=== PATIENT | female | born 1995 | race Caucasian/White ===

== ENCOUNTER 2020-01-22 10:37 | Emergency (ER) | payer OTHER, SELFPAY ==
[2020-01-22 11:14] VITALS: BP 118/67; PULSE 74; RESP 18; TEMP 36.8; O2SAT 98; BMI 29.1
--- NOTE | 2020-01-22 11:34 | HMH.EDUTC ---
[facility] [place] Disposition Clinical Impression: Left otitis media Qualifiers: Otitis media type: suppurative Chronicity: acute Recurrence: non-recurrent Spontaneous tympanic membrane rupture: without spontaneous rupture Qualified Code(s): H66.002 - Acute suppurative otitis media without spontaneous rupture of ear drum, left ear Disposition: Home, Self-Care Condition on Discharge: Good Instructions: Middle Ear Infection Additional Instructions: Drink plenty of fluids. Take tylenol or ibuprofen for pain or fever. Take the medications as directed. Follow up with your regular doctor. GO TO THE ER FOR ANY WORSENING SYMPTOMS Prescriptions: Amoxicillin/Potassium Clav [Augmentin 875-125 Tablet] 1 tab PO Q12H 10 Days #20 tab Transmission Status: Received by [facility] Neomycin/Polymyxin B Sulf/Hc [Zgwkpxxj-Ewhtvenej-WA Otic Susp 10mL] 3 drops EAR-LEFT TID 7 Days #1 bottle Transmission Status: Received by [facility] Referrals: PCP,No [Primary Care Provider] - Time of Disposition: 11:38 Medical Decision Making - Medical Records Medical records reviewed: No: I reviewed the patient's medical records. - Vasquez Inquiry Pt receiving controlled substance: No Vital Signs: 01/22/20 11:14 01/22/20 11:47 Temperature 98.2 F 98.2 F Temperature Source Oral Oral Pulse Rate 74 Pulse Rate [Radial] 74 Respiratory Rate 18 18 Blood Pressure 118/67 Blood Pressure [Right Arm] 118/67 Blood Pressure Mean [Right Arm] 84 Blood Pressure Source Automatic Cuff Blood Pressure Source [Right Arm] Automatic Cuff Blood Pressure Position Sitting Blood Pressure Position [Right Arm] Sitting 02 Sat by Pulse Oximetry 98 Oxygen Delivery Method Room Air Room Air [facility] [place] HPI - General Stated complaint: ear pain left ear swollen Time Seen by Provider: 01/22/20 11:36 Mode of Arrival: Ambulatory Source of Information: Patient Limitations: No Limitations Description of Symptoms (Recalled from Triage Doc. by RN): LEFT EAR PAIN AND SWELLING HEENT Symptoms (Recalled from RN notes): Yes Resp Symptoms (Recalled from RN notes): No Skin Symptoms (Recalled from RN notes): No MS Symptoms (Recalled from RN notes): No Functional Status (Recalled from RN notes): WNL - History of Present Illness Provider Complaint: She c/o left ear pain for the past 2 days. She has a history of getting ear infections easily. - Related Data Previous Rx's Medication Instructions Recorded Penicillin V Potassium 500 mg PO BID 10 Days #20 tab 03/12/19 Amoxicillin/Potassium Clav 1 tab PO Q12H 10 Days #20 tab 01/22/20 [Augmentin 875-125 Tablet] Neomycin/Polymyxin B Sulf/Hc 3 drops EAR-LEFT TID 7 Days #1 01/22/20 [Lcxiqfqp-Ehlvtdqde-XL Otic Susp bottle 10mL] Allergies Allergy/AdvReac Type Severity Reaction Status Date / Time diphenhydramine Allergy Unknown Verified 08/28/18 13:52 [From BENADRYL] - Worker's Comp Is this a Worker's Comp case?: No [facility] History - Hepatitis A Screen Drug use history?: No High risk sexual behaviors?: No History of sexually transmitted infection?: No Currently employed?: No Childcare worker?: No Do you have indoor plumbing?: Yes Do you have electricity?: Yes Attestation statement:: This patient has been screened for Hepatitis A risk factors. I have reviewed the patient's past medical history: Yes Medical History: Denies:: Cancer, Diabetes Mellitus Type 1, Diabetes Mellitus Type 2, Hypertension, MRSA Laterality Cases: Bilateral: Tonsillectomy Other Surgeries: Yes: Appendectomy Amputation: No Fractures: No - Social History Smoking Status: Current every day smoker Tobacco Type: cigarettes Alcohol Intake: never Occupational Status: employed Housing: house Family Hx:: No significant family history ROS Obtained: Yes All systems reviewed & no additional complaints - Constitutional Constitutional: Denies chills, Denies fever(s), Reports poor appetite, Reports malaise - Ey
[2020-01-22 11:47] VITALS: BP 118/67; PULSE 74; RESP 18; TEMP 36.8; O2SAT 98
== END 2020-01-22 11:48 | disposition home or self-care (01) ==
PROVIDERS: Emergency Provider Nurse Practitioner Family
DX: H66.002 Acute suppurative otitis media without spontaneous rupture of ear drum, left ear (principal); F17.210 Nicotine dependence, cigarettes, uncomplicated
CPT/HCPCS: 99201

== ENCOUNTER 2020-02-03 08:40 | Emergency (ER) | payer OTHER, SELFPAY ==
[2020-02-03 08:46] VITALS: BP 123/75; PULSE 87; RESP 17; TEMP 37.1; O2SAT 98; BMI 28.0
--- NOTE | 2020-02-03 08:49 | XR_ITS ---
PROCEDURE: XR CHEST 2V CLINICAL HISTORY: COUGH COMPARISON: CR CXR CHEST(2 VIEWS-NOT PORTABLE) from 12/13/2014 FINDINGS: The cardiomediastinal silhouette and pulmonary vascularity are within normal limits. On the lateral view there are increased markings in the region of the right middle lobe. The remaining lungs are clear. No acute bony abnormalities. IMPRESSION: Right middle lobe infiltrate. Dictated by: Isidro Phoenix MD 02/03/2020 15:22 Isidro Phoenix MD in [place] 02/03/2020 15:22
[2020-02-03 09:00] LABS: Adenovirus,PCR Not Detected (NotDetected); Bordetella Pertussis Not Detected (NotDetected); Chlamydophila Pneumoniae, PCR Not Detected (NotDetected); Coronavirus 19, PCR Not Detected (NotDetected); Coronavirus 229E Not Detected (NotDetected); Coronavirus NL63 Not Detected (NotDetected); Coronavirus OC43 Not Detected (NotDetected); Coronovirus HKU1,PCR Not Detected (NotDetected); Human Metapneumovirus Not Detected (NotDetected); Influenza A, PCR Not Detected (NotDetected); Influenza AH1, 2009 Not Detected (NotDetected); Influenza AH1, PCR Not Detected (NotDetected); Influenza AH3,PCR Not Detected (NotDetected); Influenza B, PCR Not Detected (NotDetected); Mycoplasma Pneumoniae, PCR Not Detected (NotDetected); Parainfluenza 1, PCR Not Detected (NotDetected); Parainfluenza 2, PCR Not Detected (NotDetected); Parainfluenza 3, PCR Not Detected (NotDetected); Parainfluenza 4, PCR Not Detected (NotDetected); Respiratory Syncytial Virus Not Detected (NotDetected)
--- NOTE | 2020-02-03 09:16 | HMH.EDGENADL ---
ED Disposition Clinical Impression: Viral upper respiratory infection Disposition: Home, Self-Care Condition on Discharge: Good Instructions: DI for Viral Upper Respiratory Infection -- Adult Additional Instructions: Tessalon as needed for cough. Tylenol or ibuprofen as needed for pain. Call back to the emergency department in 3 hrs to obtain your COVID-19 test result. Quarantine yourself until you obtain your result. Additional instructions for UPPER RESPIRATORY INFECTION: See your physician if not improving in 3-4 days or if worsening. Rest and drink plenty of fluids. Return immediately if you have an uncontrollable fever greater than 104 degrees, difficulty breathing or shortness of breath, persistent vomiting, or inability to swallow. Prescriptions: Benzonatate [Tessalon Perle 100mg Cap] 100 mg PO TIDP PRN #20 cap PRN Reason: Cough Transmission Status: Received by [facility] Referrals: PCP,No [Primary Care Provider] - - Critical Care Critical Care Time: No Attestation: On 02/03/20, the high probability of a clinically significant, sudden or life threatening deterioration of the following system(s) required my full and direct attention, intervention and personal management. The time I documented below is in addition to time spent performing reported procedures but includes the following listed in this critical care notation. Medical Decision Making - Vasquez Inquiry Pt receiving controlled substance: No Vital Signs: 02/03/20 08:46 Temperature 98.8 F Temperature Source Oral Pulse Rate [Right Radial] 87 Respiratory Rate 17 Blood Pressure [Right Arm] 123/75 Blood Pressure Mean [Right Arm] 91 02 Sat by Pulse Oximetry 98 Oxygen Delivery Method Room Air - Lab Data Lab Results 02/03/20 08:41: Group A Strep Rapid Negative Orders (Tests/Meds): ORDERS Category Date Time Status XR chest 2V Stat Exams 02/03/20 08:49 Taken Full Resp Panel w/COVID ([facility]) Routine Lab 02/03/20 08:41 Received Strep Screen Confirmation Stat Micro 02/03/20 08:41 Received - Radiology Data #1 Image(s): Chest Image Reviewed: Yes I reviewed the patient's radiology image Preliminary Findings: Normal/NAD General Adult HPI - General Chief complaint: Upper Respiratory Infection Stated complaint: cough, sore throat Time Seen by Provider: 02/03/20 09:18 Mode of Arrival: Ambulatory Limitations: No Limitations Description of Symptoms (Recalled from ER Triage Doc. by RN): PT PRESENTS TO ED WITH C/O SORE THROAT AND COUGH X 2 DAYS. NO FEVER. - History of Present Illness HPI narrative: 3-day history of cough and sore throat. Denies rhinorrhea, fever, earache, vomiting or diarrhea. No sputum production. No known exposures to illnesses including COVID-19. - Related Data Previous Rx's Medication Instructions Recorded Penicillin V Potassium 500 mg PO BID 10 Days #20 tab 03/12/19 Amoxicillin/Potassium Clav 1 tab PO Q12H 10 Days #20 tab 01/22/20 [Augmentin 875-125 Tablet] Neomycin/Polymyxin B Sulf/Hc 3 drops EAR-LEFT TID 7 Days #1 01/22/20 [Edeqcabn-Izvrxyhhg-RG Otic Susp bottle 10mL] Benzonatate [Tessalon Perle 100mg 100 mg PO TIDP PRN #20 cap 02/03/20 Cap] Allergies Allergy/AdvReac Type Severity Reaction Status Date / Time diphenhydramine Allergy Unknown Verified 02/03/20 08:49 [From TUNDE] [facility] History - Hepatitis A Screen Drug use history?: No High risk sexual behaviors?: No History of sexually transmitted infection?: No Currently employed?: No Childcare worker?: No Do you have indoor plumbing?: Yes Do you have electricity?: Yes Attestation statement:: This patient has been screened for Hepatitis A risk factors. I have reviewed the patient's past medical history: Yes Medical History: Denies:: Cancer, Diabetes Mellitus Type 1, Diabetes Mellitus Type 2, Hypertension, MRSA Laterality Cases: Bilateral: Tonsillectomy Other Surgeries: Yes: Appendectom
[2020-02-03 09:19] LABS: Strep Scrn Group A (Rapid) Negative (Negative)
[2020-02-03 09:41] VITALS: BP 118/70; PULSE 85; RESP 15; TEMP 37.1; O2SAT 99
[2020-02-03 12:26] LABS: Rhinovirus/Enterovirus Detected (NotDetected)
== END 2020-02-03 09:42 | disposition home or self-care (01) ==
PROVIDERS: Emergency Provider Emergency Medicine
DX: Z20.828 Contact with and (suspected) exposure to other viral communicable diseases (principal); J06.9 Acute upper respiratory infection, unspecified
CPT/HCPCS: 71046; 87430; 87581; 87633; 87798; 99283; U0003

== ENCOUNTER 2020-08-25 13:32 | Emergency (ER) | payer OTHER, SELFPAY ==
[2020-08-25 13:35] VITALS: BP 130/84; PULSE 89; RESP 20; TEMP 37; O2SAT 98; BMI 28.3
--- NOTE | 2020-08-25 14:37 | HMH.EDUTC ---
[facility] [place] Disposition Clinical Impression: Nausea vomiting and diarrhea Disposition: Home, Self-Care Condition on Discharge: Good Instructions: Nausea and Vomiting-Adult, Diarrhea, Ondansetron, Dicyclomine Additional Instructions: Drink extra fluids with and between meals. If you have difficulty drinking, try very small amounts of water or suck on ice chips. ? Avoid fruit juices, as these do not replace minerals and can actually increase diarrhea. ? Children and adults can use sports drinks to replenish electrolytes. Younger children and infants should use products formulated for children, like oral rehydration solutions. ? Eat food in small amounts and let your stomach recover. ? Get lots of rest. You may feel tired or weak. ? No greasy or fried foods for the next 24-48 hours BRAT diet Bananas Rice Apples and [place] ? Make sure to drink plenty of liquids ? Return if needed ? Straight to ER if any life threatening symptoms ? Zofran as prescribed ? You was given an outpatient order for diarrhea panel, please collect specimen and bring back to outpatient lab then call back to the [facility] or follow up with family doctor for results ? Follow up with family doctor in the next 48-72 hours if no improvement or any worsening of symptoms Prescriptions: Dicyclomine HCl [Bentyl 10mg capsule] 10 mg PO TID PRN #15 cap PRN Reason: Cramping Transmission Status: Pending to [facility] Ondansetron [Zofran 4mg ODT] 4 mg PO TIDP PRN #10 tab PRN Reason: Nausea And Vomiting Transmission Status: Pending to [facility] Referrals: Provider,Referral, MD [Primary Care Provider] - As needed Time of Disposition: 14:40 Medical Decision Making - Vasquez Inquiry Pt receiving controlled substance: No Vasquez was queried for this patient: No Vital Signs: 08/25/20 13:35 Temperature 98.6 F Temperature Source Oral Pulse Rate [Right Brachial] 89 Respiratory Rate 20 Blood Pressure [Right Arm] 130/84 Blood Pressure Mean [Right Arm] 99 Blood Pressure Source [Right Arm] Automatic Cuff Blood Pressure Position [Right Arm] Sitting 02 Sat by Pulse Oximetry 98 Oxygen Delivery Method Room Air Medical Decision Narrative: No vomiting since arrival patient report has nexplonon in left arm denies chance of [facility] HPI - General Stated complaint: vomiting/nausea/diarrhea Time Seen by Provider: 08/25/20 14:37 Mode of Arrival: Ambulatory Source of Information: Patient Limitations: No Limitations Description of Symptoms (Recalled from Triage Doc. by RN): PATIENT C/O VOMITING AND DIARRHEA SINCE 0500 THIS MORNING HEENT Symptoms (Recalled from RN notes): No Resp Symptoms (Recalled from RN notes): No Skin Symptoms (Recalled from RN notes): No MS Symptoms (Recalled from RN notes): No Functional Status (Recalled from RN notes): WNL - History of Present Illness Provider Complaint: Patient state that she was recently around someone with the stomache bug States that she woke up around 5am this morning having vomiting and diarrhea State that she has continued to have it throughout the day and wanted to come in and get something so she didnt get dehydrated - Related Data Previous Rx's Medication Instructions Recorded Dicyclomine HCl [Bentyl 10mg 10 mg PO TID PRN #15 cap 08/25/20 capsule] Ondansetron [Zofran 4mg ODT] 4 mg PO TIDP PRN #10 tab 08/25/20 Allergies Allergy/AdvReac Type Severity Reaction Status Date / Time diphenhydramine Allergy Unknown Verified 02/03/20 08:49 [From BENADRYL] - Worker's Comp Is this a Worker's Comp case?: No [facility] History - Hepatitis A Screen Drug use history?: No High risk sexual behaviors?: No History of sexually transmitted infection?: No Currently employed?: No Childcare worker?: No Do you have indoor plumbing?: Yes Do you have electricity?: Yes Attestation statement:: This patient has been screened for Hepatitis A risk factors. I have reviewed the patient's pa
[2020-08-25 14:47] VITALS: BP 130/84; PULSE 89; RESP 20; TEMP 37; O2SAT 98
== END 2020-08-25 14:51 | disposition home or self-care (01) ==
PROVIDERS: Emergency Provider Nurse Practitioner
DX: R11.2 Nausea with vomiting, unspecified (principal); R19.7 Diarrhea, unspecified; F17.210 Nicotine dependence, cigarettes, uncomplicated
CPT/HCPCS: 99202; G0463

== ENCOUNTER 2020-11-19 12:52 | Emergency (ER) | payer OTHER, SELFPAY ==
[2020-11-19 14:00] VITALS: BP 128/78; PULSE 76; RESP 19; TEMP 36.8; O2SAT 98; BMI 28.3
--- NOTE | 2020-11-19 14:36 | HMH.EDUTC ---
[facility] [place] Disposition Clinical Impression: Viral upper respiratory infection, Exposure to COVID-19 virus Disposition: Home, Self-Care Condition on Discharge: Good Instructions: DI for COVID-19 (Suspected or Confirmed ), Preventing the Spread of Coronavirus Discharge Instructions, Coronavirus Disease 2019 Additional Instructions: *Monitor Temp, Over the counter Motrin or Tylenol as directed/as needed Tylenol every 4 hours and Motrin every 6 hours (as long as your family doctor has told you that you can take it) for fever or pain. and straight to ER if unable to lower temp less than 101.0 after medication given *Warm salt water gargles may help to soothe the throat *Throat Lozenges *Warm fluids like tea with honey may help to soothe the throat *Sleep elevated *Humidifier/Vaporizer *Bromfed may cause drowsiness. Know how it effects you (your child) before driving, caring for small child, or sending your child to school. Not other antihistamines/allergy medications while taking bromfed Follow up IMMEDIATELY for new or worsening symptoms or no Noticeable improvement over the next 48-72 hours. 911 for difficulty breathing or swallowing You were tested for today for COVID19 your test result should be back in the next 24-48 hours, you may call to the [facility] to see if your test results are back in the next 48 hours [phone] [facility] hours are 9am-9pm You was given a handout with instructions for Self Quarantine and Self isolation for while you wait on test results and what to do if they are positive If you are positive the Health Dept will be contacting you also Make sure to take your Vitamins Vit. C Vit D and Zinc if you can take them Prescriptions: Promethazine/Dextromethorphan [Promethazine-Dm Syrup] 2.5 - 5 ml PO Q46H PRN #100 ml PRN Reason: Cough Transmission Status: Pending to [facility] Referrals: Tanya Henriquez PA [Primary Care Provider] - Forms: Work/School Release Time of Disposition: 14:41 Medical Decision Making - Vasquez Inquiry Pt receiving controlled substance: No Vasquez was queried for this patient: No Vital Signs: 11/19/20 14:00 Temperature 98.3 F Temperature Source Oral Pulse Rate [Left Brachial] 76 Respiratory Rate 19 Blood Pressure [Right Arm] 128/78 Blood Pressure Mean [Right Arm] 94 Blood Pressure Source [Right Arm] Automatic Cuff Blood Pressure Position [Right Arm] Sitting 02 Sat by Pulse Oximetry 98 Oxygen Delivery Method Room Air Orders (Tests/Meds): ORDERS Category Date Time Status Covid-19 Nasal PCR ([facility]) Routine Lab 11/19/20 14:28 Ordered [facility] HPI - General Stated complaint: covid exposure Time Seen by Provider: 11/19/20 14:36 Mode of Arrival: Ambulatory Source of Information: Patient Limitations: No Limitations Description of Symptoms (Recalled from Triage Doc. by RN): PATIENT C/O COUGH AND RUNNY NOSE X 2 DAYS. RECENTLY EXPOSED TO COVID HEENT Symptoms (Recalled from RN notes): Yes Resp Symptoms (Recalled from RN notes): No Skin Symptoms (Recalled from RN notes): No MS Symptoms (Recalled from RN notes): No Functional Status (Recalled from RN notes): WNL - History of Present Illness Provider Complaint: Patient states that she was recently around her neice that has since tested positive for COVID State that she has started having runny nose and cough and wanted to come in and get tested - Related Data Previous Rx's Medication Instructions Recorded Dicyclomine HCl [Bentyl 10mg 10 mg PO TID PRN #15 cap 08/25/20 capsule] Ondansetron [Zofran 4mg ODT] 4 mg PO TIDP PRN #10 tab 08/25/20 Promethazine/Dextromethorphan 2.5 - 5 ml PO Q46H PRN #100 ml 11/19/20 [Promethazine-Dm Syrup] Allergies Allergy/AdvReac Type Severity Reaction Status Date / Time diphenhydramine Allergy Unknown Verified 02/03/20 08:49 [From BENADRYL] - Worker's Comp Is this a Worker's Comp case?: No [facility] History - Hepatitis A Screen Drug use history?:
[2020-11-19 14:57] VITALS: BP 128/78; PULSE 76; RESP 19; TEMP 36.8; O2SAT 98
== END 2020-11-19 14:58 | disposition home or self-care (01) ==
PROVIDERS: Emergency Provider Nurse Practitioner; PCP Physician Assistant
DX: Z20.822 Contact with and (suspected) exposure to COVID-19 (principal); J06.9 Acute upper respiratory infection, unspecified; F17.210 Nicotine dependence, cigarettes, uncomplicated
CPT/HCPCS: 99202; G0463; U0003

== ENCOUNTER 2023-02-12 23:43 | Emergency (ER) | payer OTHER, SELFPAY ==
[2023-02-12 23:48] VITALS: BP 137/83; PULSE 90; RESP 16; TEMP 36.6; O2SAT 99; BMI 28.3
[2023-02-13] VITALS: BP 129/65; PULSE 115; O2SAT 97
--- NOTE | 2023-02-13 | XR_ITS ---
PROCEDURE INFORMATION: Exam: XR Chest Exam date and time: 02/13/2023 12:02 AM Age: 27 years old Clinical indication: Patient HX: Worsening productive cough; Additional info: Productive cough, SOA TECHNIQUE: Imaging protocol: Radiologic exam of the chest. Views: 2 views. COMPARISON: CR XR CHEST 2V 02/03/2020 8:54 AM FINDINGS: Lungs: Unremarkable. No consolidation. Pleural spaces: Unremarkable. No pleural effusion. No pneumothorax. Heart/Mediastinum: Unremarkable. No cardiomegaly. Bones/joints: Unremarkable. IMPRESSION: No acute findings.
--- NOTE | 2023-02-13 00:06 | HMH.EDGENADL ---
Discharge Plan Disposition Patient Disposition: Home, Self-Care Prescriptions Prescriptions: New benzonatate 200 mg capsule 200 mg PO TID PRN (Reason: cough) Qty: 14 0RF zsrqonlxdjrafm-qtdbncmyqhow-GK 4-10-30 mg/5 mL liquid 5 ml PO Q8 PRN (Reason: cough) Qty: 480 0RF No Action Nexplanon 68 mg implant 1 implant SUBDERMAL DIRECTED Referrals Follow up/Referrals: Washington Ibrahim MD [Primary Care Provider] - See instructions Activity Restrictions/Add. Instructions Additional Instructions/Restrictions: Please take off medications as prescribed as needed. If your symptoms continue to worsen or do not improve, consider returning to ED or urgent care or PCP for repeat evaluation. Clinical Impressions Clinical Impression: URI (upper respiratory infection), Cough Discharge ED Provider: Dwight Wright Adult HPI General Chief complaint: Upper Respiratory Infection Stated complaint: Sore throat,cough,head congestions Time Seen by Provider: 02/12/23 23:52 Mode of Arrival: Ambulatory Source of Information: Patient Limitations: No Limitations Description of Symptoms (Recalled from ER Triage Doc. by RN): Patient has had cough, congestion, sore throat for 3 days. History of Present Illness HPI narrative: 27-year-old female, no reported past medical history, on no medications, presents with 3 days of worsening cough, congestion, sneezing. She reports that her cough is productive of yellow sputum. She is beginning to have pain with coughing. She reports symptoms are worsening over the last 3 days. She denies any fevers at home. She denies any chest pain unrelated to coughing. She reports no sore throat besides with coughing. She reports that her nephew had similar symptoms about 5 days ago and she thinks she picked it up from him. Related Data Home Medications Medication Instructions Recorded Confirmed etonogestrel 68 mg subdermal 1 implant subdermal DIRECTED 08/23/21 02/13/23 implant (Nexplanon) Previous Rx's Medication Instructions Recorded benzonatate 200 mg capsule 200 mg PO TID PRN cough #14 caps 02/13/23 uefdfckotulcijs-nfhzdwrzxjama-TF 4 5 ml PO Q8 PRN cough #480 mL 02/13/23 mg-10 mg-30 mg/5 mL oral liquid Allergies Allergy/AdvReac Type Severity Reaction Status Date / Time diphenhydramine Allergy Intermediate Hives Verified 02/13/23 00:04 [From BENADRYL] [facility] Disclaimer: The information contained in this section may have been updated after the patient was seen, as this information can be updated by other users. Social History Smoking Status: Current every day smoker tobacco type: e-cigarettes alcohol intake: never current occupational status: other Travel in the last 8 weeks: None housing: house ROS Obtained: Yes All systems reviewed & no additional complaints except as documented Physical Exam General General appearance: alert and in no apparent distress Head Head exam: atraumatic and normocephalic Eye Eye exam: Present normal appearance, PERRL and EOMI ENT ENT exam: Present normal oropharynx and normal external ear exam Neck Neck exam: Present normal inspection and full ROM Chest Chest inspection: Present normal inspection and symmetric chest wall rise; Absent tenderness Respiratory Respiratory exam: Present other (Right lower lobe crackles, frequent cough noted); Absent respiratory distress Cardiovascular Cardiovascular exam: Present normal rhythm and tachycardia Abdominal Exam Abdominal exam: Present soft; Absent distention, tenderness or guarding Extremities Exam Extremities exam: Present normal inspection; Absent edema or joint swelling Back Exam Back exam: Present normal inspection; Absent tenderness Neurological Exam Neurological exam: Present alert and oriented X3; Absent motor sensory deficit Psychiatric Psychiatric exam: Present normal affect and normal mood Skin Skin exam: Present warm, dry and normal color Lympha
[2023-02-13 01:23] VITALS: BP 110/79; PULSE 89; RESP 18; TEMP 36.5; O2SAT 97
== END 2023-02-13 01:25 | disposition home or self-care (01) ==
PROVIDERS: Emergency Provider Emergency Medicine; PCP Emergency Medicine
DX: R05.9 Cough, unspecified (principal); J06.9 Acute upper respiratory infection, unspecified; F17.290 Nicotine dependence, other tobacco product, uncomplicated
CPT/HCPCS: 71046; 99283

== ENCOUNTER 2023-05-14 10:51 | Emergency (ER) | payer OTHER, SELFPAY ==
[2023-05-14 11:10] VITALS: BP 143/88; PULSE 76; RESP 18; TEMP 36.6; O2SAT 97; BMI 34.3
--- NOTE | 2023-05-14 11:16 | ED_ITS ---
Discharge Plan Disposition Patient Disposition: Home, Self-Care Condition: Good Prescriptions Prescriptions: New polymyxin B sulf-trimethoprim 10,000 unit- 1 mg/mL drops 1 drp Eye-Both Q3H 7 Days Qty: 10 0RF Rx Instructions: while awake; do not exceed 6 doses in 24 hours No Action Nexplanon 68 mg implant 1 implant SUBDERMAL DIRECTED Referrals Follow up/Referrals: Provider,Referral, MD [Primary Care Provider] - See instructions Activity Restrictions/Add. Instructions Additional Instructions/Restrictions: Use the eye drops as directed. Strict hand washing in the house hold, because conjunctivitis is very contagious. Follow up with your regular doctor. GO TO THE ER FOR ANY WORSENING SYMPTOMS OR CONCERNS Clinical Impressions Clinical Impression: Bilateral conjunctivitis Instructions Patient Instructions: How to Instill Eye Drops, DI for Conjunctivitis Discharge ED Provider: Dylan Cash [facility] HPI General Stated complaint: both eye pain Time Seen by Provider: 05/14/23 11:16 History of Present Illness Provider Complaint: She states that for the past 3 days she has had bilateral eye redness, irritation, and yellowish discharge. She denies any injury or foreign body. Related Data Home Medications Medication Instructions Recorded Confirmed etonogestrel 68 mg subdermal 1 implant subdermal DIRECTED 08/23/21 05/14/23 implant (Nexplanon) Previous Rx's Medication Instructions Recorded polymyxin B sulfate 10,000 1 drp Eye-Both Q3H 7 days #10 mL 05/14/23 unit-trimethoprim 1 mg/mL eye drops Allergies Allergy/AdvReac Type Severity Reaction Status Date / Time diphenhydramine Allergy Intermediate Hives Verified 05/14/23 11:23 [From BENADRYL] [facility] Disclaimer: The information contained in this section may have been updated after the patient was seen, as this information can be updated by other users. Social History Smoking Status: Current every day smoker tobacco type: e-cigarettes alcohol intake: never current occupational status: other Travel in the last 8 weeks: None housing: house ROS Obtained: Yes All systems reviewed & no additional complaints except as documented Constitutional Constitutional: Denies chills and Denies fever(s) Eyes Eyes: Reports as per HPI, Denies blurry vision and Reports eye discharge ENT Ears, Nose, Mouth, and Throat: Denies dizziness, Denies otalgia and Denies sore throat Cardiovascular Cardiovascular: Denies chest pain Respiratory Respiratory: Denies shortness of breath, Denies chest congestion, Denies cough, Denies stridor and Denies wheezing Gastrointestinal Gastrointestingal: Denies nausea or vomiting Musculoskeletal Musculoskeletal: Reports system reviewed and no additional complaints, except as documented and Denies arthralgias Integumentary/Breasts Skin/Breast: Denies rash Neurologic Neurologic: Denies dizziness and Denies paresthesias Allergic/Immunologic Allergic/Immunologic: Denies wheezing Physical Exam General General appearance: alert and in no apparent distress Head Head exam: atraumatic, normocephalic and normal inspection Eye Eye exam: Present PERRL, EOMI, conjunctival redness, conjunctival injection and discharge ENT ENT exam: Present normal exam, normal oropharynx, mucous membranes moist, TM's normal bilaterally and normal external ear exam Neck Neck exam: Present normal inspection, full ROM and trachea midline; Absent meningismus or lymphadenopathy Chest Chest inspection: Present normal inspection and symmetric chest wall rise; Absent tenderness Respiratory Respiratory exam: Present normal lung sounds bilaterally; Absent respiratory distress Cardiovascular Cardiovascular exam: Present regular rate and normal rhythm; Absent JVD Abdominal Exam Abdominal exam: Present soft and normal bowel sounds; Absent distention, tenderness or guarding Extremities Exam Extremities exam: Present normal inspection, full ROM and normal capillary refill; Absent calf tenderness Back Exam Back exam: Present normal inspection; Absent tenderness Neurological Exam Neurological exam: Present alert and oriented X3 Psychiatric Psychiatric exam: Present normal affect and normal mood Skin Skin exam: Present warm, dry, intact and normal color Lymphatic Lymphatic Findings: no adenopathy Medical Decision Making Medical Records Medical records reviewed: No I reviewed the patient's medical records. Vasquez Inquiry Pt receiving controlled substance: No
[2023-05-14 11:43] VITALS: BP 143/88; PULSE 76; RESP 18; TEMP 36.6; O2SAT 97
== END 2023-05-14 11:43 | disposition home or self-care (01) ==
PROVIDERS: Emergency Provider Nurse Practitioner Family
DX: H10.33 Unspecified acute conjunctivitis, bilateral (principal); F17.290 Nicotine dependence, other tobacco product, uncomplicated
CPT/HCPCS: 99212; 99214; G0463

== ENCOUNTER 2023-05-29 15:25 | Emergency (ER) | payer OTHER, SELFPAY ==
--- NOTE | 2023-05-29 15:55 | ED_ITS ---
Discharge Plan Disposition Patient Disposition: Home, Self-Care Condition: Good Prescriptions Prescriptions: New ibuprofen [ibuprofen] 600 mg tablet 600 mg PO Q6HP PRN (Reason: Mild Pain) Qty: 30 0RF No Action Nexplanon 68 mg implant 1 implant SUBDERMAL DIRECTED Referrals Follow up/Referrals: Provider,Referral, [Primary Care Provider] - See instructions Activity Restrictions/Add. Instructions Additional Instructions/Restrictions: Drink plenty of fluids. Take tylenol or ibuprofen for pain or fever. Follow up with your regular doctor. GO TO THE ER FOR ANY WORSENING SYMPTOMS Clinical Impressions Clinical Impression: Viral pharyngitis Instructions Patient Instructions: DI for Viral Pharyngitis Discharge ED Provider: Dylan Cash [facility] [place] HPI General Stated complaint: sore throat, cough Time Seen by Provider: 05/29/23 15:52 Related Data Home Medications Medication Instructions Recorded Confirmed etonogestrel 68 mg subdermal 1 implant subdermal DIRECTED 08/23/21 05/29/23 implant (Nexplanon) Previous Rx's Medication Instructions Recorded ibuprofen 600 mg tablet 600 mg PO Q6HP PRN Mild Pain #30 05/29/23 tabs Allergies Allergy/AdvReac Type Severity Reaction Status Date / Time diphenhydramine Allergy Intermediate Hives Verified 05/29/23 16:22 [From BENADRYL] [facility] Disclaimer: The information contained in this section may have been updated after the patient was seen, as this information can be updated by other users. Social History Smoking Status: Current every day smoker tobacco type: e-cigarettes alcohol intake: never current occupational status: other Travel in the last 8 weeks: None housing: house ROS Obtained: Yes All systems reviewed & no additional complaints except as documented Constitutional Constitutional: Reports chills and Reports fever(s) Eyes Eyes: Denies eye discharge ENT Ears, Nose, Mouth, and Throat: Reports as per HPI Cardiovascular Cardiovascular: Denies chest pain Respiratory Respiratory: Denies chest congestion and Reports cough Gastrointestinal Gastrointestingal: Reports nausea; Denies abdominal pain, constipation, cramping, diarrhea or vomiting Musculoskeletal Musculoskeletal: Denies arthralgias Integumentary/Breasts Skin/Breast: Denies rash Neurologic Neurologic: Denies paresthesias Physical Exam General General appearance: alert and in no apparent distress Head Head exam: atraumatic, normocephalic and normal inspection Eye Eye exam: Present normal appearance, PERRL and EOMI ENT ENT exam: Present normal exam, normal oropharynx, mucous membranes moist, TM's normal bilaterally and normal external ear exam Neck Neck exam: Present normal inspection, full ROM and trachea midline; Absent meningismus or lymphadenopathy Chest Chest inspection: Present normal inspection and symmetric chest wall rise; Absent tenderness Respiratory Respiratory exam: Present normal lung sounds bilaterally; Absent respiratory distress Cardiovascular Cardiovascular exam: Present regular rate and normal rhythm; Absent JVD Abdominal Exam Abdominal exam: Present soft and normal bowel sounds; Absent distention, tenderness or guarding Extremities Exam Extremities exam: Present normal inspection, full ROM and normal capillary refill; Absent calf tenderness Back Exam Back exam: Present normal inspection; Absent tenderness Neurological Exam Neurological exam: Present alert and oriented X3 Psychiatric Psychiatric exam: Present normal affect and normal mood Skin Skin exam: Present warm, dry, intact and normal color Lymphatic Lymphatic Findings: no adenopathy Medical Decision Making Medical Records Medical records reviewed: No I reviewed the patient's medical records. Vasquez Inquiry Pt receiving controlled substance: No Lab Data Lab results reviewed: Yes I reviewed the patient's lab results.
[2023-05-29 16:00] VITALS: BP 120/86; PULSE 77; RESP 12; TEMP 36.6; O2SAT 97; BMI 29.9
[2023-05-29 16:41] LABS: UTC Strep Screen (Rapid) Negative (Negative)
[2023-05-29 16:56] VITALS: BP 120/86; PULSE 77; RESP 12; TEMP 36.6; O2SAT 97
== END 2023-05-29 16:56 | disposition home or self-care (01) ==
PROVIDERS: Emergency Provider Nurse Practitioner Family
DX: J02.9 Acute pharyngitis, unspecified (principal); R05.9 Cough, unspecified; B34.9 Viral infection, unspecified; F17.290 Nicotine dependence, other tobacco product, uncomplicated
CPT/HCPCS: 87880; 99212; 99214; G0463

== ENCOUNTER 2023-09-08 18:00 | Emergency (ER) | payer OTHER, SELFPAY ==
[2023-09-08 18:20] VITALS: BP 141/73; PULSE 71; RESP 18; TEMP 36.8; O2SAT 97; BMI 29.1
--- NOTE | 2023-09-08 18:26 | EXP.UTC ---
Discharge Plan Disposition Patient Disposition: Home, Self-Care Condition: Good Prescriptions Prescriptions: New triamcinolone acetonide 0.1 % cream 1 applic topical BID PRN (Reason: itching) Qty: 30 0RF methylprednisolone 4 mg Tablets,Dose Pack 4 mg PO DIRECTED 6 Days Qty: 21 0RF Rx Instructions: Take 1 pack as directed for 6 days No Action Nexplanon 68 mg implant 1 implant SUBDERMAL DIRECTED Referrals Follow up/Referrals: Provider,Referral, MD [Primary Care Provider] - See instructions Activity Restrictions/Add. Instructions Additional Instructions/Restrictions: Don't start the oral steroids until tomorrow. Don't put the topical steroids (triamcinolone) on your face or your groin. Follow up with your regular doctor. GO TO THE ER FOR ANY WORSENING SYMPTOMS OR CONCERNS Clinical Impressions Clinical Impression: Bee sting Instructions Patient Instructions: Insect Bites and Stings, DI for Insect Bites and Stings Discharge ED Provider: Dylan Cash [facility] [place] General Stated complaint: bee sting RT foot Time Seen by Provider: 09/08/23 18:26 History of Present Illness Provider Complaint: She states that she was stung by a bee on the bottom of her right foot earlier today. Since then she has had pain, redness and swelling of the area of the sting. She denies any swelling of her mouth, lips or throat. She denies any history of allergy to bee stings. Related Data Home Medications Medication Instructions Recorded Confirmed etonogestrel 68 mg subdermal 1 implant subdermal DIRECTED 08/23/21 09/08/23 implant (Nexplanon) Previous Rx's Medication Instructions Recorded methylprednisolone 4 mg tablets in 4 mg PO DIRECTED 6 days #21 tabs 09/08/23 a dose pack triamcinolone acetonide 0.1 % 1 applic topical BID PRN itching 09/08/23 topical cream #30 grams Allergies Allergy/AdvReac Type Severity Reaction Status Date / Time diphenhydramine Allergy Intermediate Hives Verified 09/08/23 18:29 [From BENADCHRISTINA] [facility] Disclaimer: The information contained in this section may have been updated after the patient was seen, as this information can be updated by other users. Social History Smoking Status: Current every day smoker tobacco type: e-cigarettes alcohol intake: never current occupational status: other Travel in the last 8 weeks: None housing: house ROS Obtained: Yes All systems reviewed & no additional complaints except as documented Constitutional Constitutional: Denies chills and Denies fever(s) Eyes Eyes: Denies eye discharge ENT Ears, Nose, Mouth, and Throat: Denies dizziness, Denies otalgia and Denies sore throat Cardiovascular Cardiovascular: Denies chest pain Respiratory Respiratory: Denies shortness of breath, Denies chest congestion, Denies cough, Denies stridor and Denies wheezing Gastrointestinal Gastrointestingal: Denies nausea or vomiting Musculoskeletal Musculoskeletal: Reports system reviewed and no additional complaints, except as documented and Denies arthralgias Integumentary/Breasts Skin/Breast: Reports as per HPI and Reports redness Neurologic Neurologic: Denies dizziness and Denies paresthesias Allergic/Immunologic Allergic/Immunologic: Denies wheezing Physical Exam General General appearance: alert and in no apparent distress Head Head exam: atraumatic, normocephalic and normal inspection Eye Eye exam: Present normal appearance, PERRL and EOMI ENT ENT exam: Present normal exam, normal oropharynx, mucous membranes moist, TM's normal bilaterally and normal external ear exam Neck Neck exam: Present normal inspection, full ROM and trachea midline; Absent meningismus or lymphadenopathy Chest Chest inspection: Present normal inspection and symmetric chest wall rise; Absent tenderness Respiratory Respiratory exam: Present normal lung sounds bilaterally; Absent respiratory distress Cardiovascular Cardiovascular exam: Present regular rate and normal rhythm; Absent JVD Abdominal Exam Abdominal exam: Present soft and normal bowel sounds; Absent distention, tenderness or guarding Extremities Exam Extremities exam: Present normal inspection, full ROM and normal capillary refill; Absent calf tenderness Back Exam Back exam: Present normal inspection; Absent tenderness Neurological Exam Neurological exam: Present alert and oriented X3 Psychiatric Psychiatric exam: Present normal affect and normal mood Skin Skin exam: Present erythema (there is redness and mild edema of the bottom of her right foot. ) Lymphatic Lymphatic Findings: no adenopathy Medical Decision Making Medical Records Medical records reviewed: No I reviewed the patient's medical records. Vasquez Inquiry Pt receiving controlled substance: No
[2023-09-08] MEDS: DEXAMETHASONE 4MG/ML 1ML VIAL 8 MG IM (19:04)
[2023-09-08 19:18] VITALS: BP 141/73; PULSE 71; RESP 18; TEMP 36.8; O2SAT 97
== END 2023-09-08 19:18 | disposition home or self-care (01) ==
PROVIDERS: Emergency Provider Nurse Practitioner Family
DX: S90.861A Insect bite (nonvenomous), right foot, initial encounter (principal); W57.XXXA Bitten or stung by nonvenomous insect and other nonvenomous arthropods, initial encounter; M79.671 Pain in right foot
CPT/HCPCS: 96372; 99212; 99214; G0463

== ENCOUNTER 2023-09-15 22:29 | Emergency (ER) | payer OTHER, SELFPAY ==
[2023-09-15 22:59] VITALS: BP 137/83; PULSE 81; RESP 16; TEMP 36.8; O2SAT 99; BMI 29.9
--- NOTE | 2023-09-15 23:02 | HMH.EDGENADL ---
Discharge Plan Disposition Patient Disposition: Home, Self-Care Prescriptions Prescriptions: No Action Nexplanon 68 mg implant 1 implant SUBDERMAL DIRECTED triamcinolone acetonide 0.1 % cream 1 applic topical BID PRN (Reason: itching) Qty: 30 0RF methylprednisolone 4 mg Tablets,Dose Pack 4 mg PO DIRECTED 6 Days Qty: 21 0RF Rx Instructions: Take 1 pack as directed for 6 days Referrals Follow up/Referrals: Provider,Referral, MD [Primary Care Provider] - See instructions Activity Restrictions/Add. Instructions Additional Instructions/Restrictions: Please use eardrops, 4 drops 4 times per day for 7 days. Please follow-up with your primary care provider. Please return to the emergency department if you develop any new or worsening symptoms or become concerned for your health. Clinical Impressions Clinical Impression: Otitis externa Qualifiers: Otitis externa type: unspecified type Chronicity: unspecified Laterality: right Qualified Code(s): H60.91 - Unspecified otitis externa, right ear Discharge ED Provider: Dwight Wright General Adult HPI General Chief complaint: Ear Stated complaint: Right earache Time Seen by Provider: 09/15/23 22:55 History of Present Illness HPI narrative: 20-year-old female with reported history of swimmer's ear in the past presents with acute right ear pain after going swimming yesterday. She denies any recent fever or illness. Reports that her hearing sounds normal. Related Data Home Medications Medication Instructions Recorded Confirmed etonogestrel 68 mg subdermal 1 implant subdermal DIRECTED 08/23/21 09/08/23 implant (Nexplanon) Previous Rx's Medication Instructions Recorded methylprednisolone 4 mg tablets in 4 mg PO DIRECTED 6 days #21 tabs 09/08/23 a dose pack triamcinolone acetonide 0.1 % 1 applic topical BID PRN itching 09/08/23 topical cream #30 grams Allergies Allergy/AdvReac Type Severity Reaction Status Date / Time diphenhydramine Allergy Intermediate Hives Verified 09/15/23 23:04 [From BENCHIO] [facility] Disclaimer: The information contained in this section may have been updated after the patient was seen, as this information can be updated by other users. Social History Smoking Status: Current every day smoker tobacco type: e-cigarettes alcohol intake: never current occupational status: other Travel in the last 8 weeks: None housing: house ROS Obtained: Yes All systems reviewed & no additional complaints except as documented Physical Exam General General appearance: alert and in no apparent distress Head Head exam: atraumatic and normocephalic Eye Eye exam: Present normal appearance, PERRL and EOMI ENT ENT exam: Present normal oropharynx, TM's normal bilaterally, normal external ear exam and other (Right external auditory canal is erythematous with minimal exudate, no mastoid tenderness) Neck Neck exam: Present normal inspection and full ROM Chest Chest inspection: Present normal inspection and symmetric chest wall rise; Absent tenderness Respiratory Respiratory exam: Present normal lung sounds bilaterally; Absent respiratory distress Cardiovascular Cardiovascular exam: Present regular rate and normal rhythm Abdominal Exam Abdominal exam: Present soft; Absent distention, tenderness or guarding Extremities Exam Extremities exam: Present normal inspection; Absent edema or joint swelling Back Exam Back exam: Present normal inspection; Absent tenderness Neurological Exam Neurological exam: Present alert and oriented X3; Absent motor sensory deficit Psychiatric Psychiatric exam: Present normal affect and normal mood Skin Skin exam: Present warm, dry and normal color Lymphatic Lymphatic Findings: no adenopathy Medical Decision Making Medical Records Medical records reviewed: Yes I reviewed the patient's medical records. Vasquez Inquiry Pt receiving controlled substance: No Vasquez was queried for this patient: No Vital Signs: 09/15/23 22:59 09/15/23 23:13 09/15/23 23:15 Temperature 98.2 F 98.2 F 98 F Temperature Source Oral Oral Pulse Rate 81 77 Pulse Rate [Left] 81 Respiratory Rate 16 18 18 Blood Pressure 137/83 126/78 Blood Pressure [Right Arm] 137/83 Blood Pressure Mean [Right Arm] 101 Blood Pressure Source [Right Arm] Automatic Cuff Blood Pressure Position [Right Arm] Sitting 02 Sat by Pulse Oximetry 99 Oxygen Delivery Method Room Air Room Air Lab Data Lab results reviewed: Yes I reviewed the patient's lab results. Orders (Tests/Meds): ED MEDICATIONS Discontinued Medications Generic Name Dose Route Start Last Admin Trade Name Freq PRN Reason Stop Dose Admin Neomycin/Polymyxin/Hydrocortisone 10 ml 09/15/23 23:05 09/15/23 23:10 Coneocjk-Zxrcaftlz-Mr Otic Susp 10ml OT 09/15/23 23:06 1 drp ONCE ONE Administration Medical Decision Narrative: 20-year-old female with history of swimmer's ear in the past presents with right ear pain after going swimming yesterday.. History was obtained interactive discussion with patient. On arrival, patient is [afebrile, hemodynamically stable, satting appropriately, alert, oriented x4, GCS 15], moving all extremities spontaneously. Full physical exam performed and significant for findings consistent with right otitis externa. Differential includes but is not limited to otitis media, otitis externa, mastoiditis. Patient was given neomycin polymyxin hydrocortisone otic drops for otitis externa and discharged in stable condition. Return precautions given. Procedures Risk/Benefits of Procedure(s) Were Explained: Yes Critical Care Critical Care Time Critical Care Time: No
[2023-09-15] MEDS: NEOMYCIN-POLYMYXIN-HC OTIC SUSP 10ML 10 ML OT (23:10)
[2023-09-15 23:13] VITALS: BP 137/83; PULSE 81; RESP 18; TEMP 36.8
[2023-09-15 23:15] VITALS: BP 126/78; PULSE 77; RESP 18; TEMP 36.6; O2SAT 99
== END 2023-09-15 23:16 | disposition home or self-care (01) ==
PROVIDERS: Emergency Provider Emergency Medicine
DX: H60.91 Unspecified otitis externa, right ear (principal); H92.01 Otalgia, right ear; F17.290 Nicotine dependence, other tobacco product, uncomplicated
CPT/HCPCS: 99283

== ENCOUNTER 2023-12-17 11:39 | Emergency (ER) | payer OTHER, SELFPAY ==
[2023-12-17 11:50] VITALS: BP 111/75; PULSE 73; RESP 20; TEMP 36.7; O2SAT 98; BMI 33.6
--- NOTE | 2023-12-17 12:15 | EXP.UTC ---
Discharge Plan Disposition Patient Disposition: Home, Self-Care Condition: Good Prescriptions Prescriptions: New amoxicillin-pot clavulanate 875-125 mg Tablet 1 tab PO Q12H 7 Days Qty: 20 0RF pseudoephedrine HCl [Sudafed 12 Hour] 120 mg tablet extended release 120 mg PO Q12H PRN (Reason: nasal congestion) Qty: 20 0RF No Action Nexplanon 68 mg implant 1 implant SUBDERMAL DIRECTED Referrals Follow up/Referrals: Provider,Referral, MD [Primary Care Provider] - See instructions Activity Restrictions/Add. Instructions Additional Instructions/Restrictions: *Monitor Temp, Over the counter Motrin or Tylenol as directed/as needed Tylenol every 4 hours and Motrin every 6 hours (as long as your family doctor has told you that you can take it) for fever or pain. and straight to ER if unable to lower temp less than 101.0 after medication given *Warm salt water gargles may help to soothe the throat *Throat Lozenges? *Warm fluids like tea with honey may help to soothe the throat? *Sleep elevated *Humidifier/Vaporizer Take medication as prescribed Follow up IMMEDIATELY for new or worsening symptoms or no Noticeable improvement over the next 48-72 hours. 911 for difficulty breathing or swallowing Clinical Impressions Clinical Impression: Sinusitis Instructions Patient Instructions: DI for Sinusitis, Sinusitis Print Language Print Language: Croatian Discharge ED Provider: Katherine Vasquez [facility] [place] [place] General Stated complaint: sore throat, cough Mode of Arrival: Ambulatory Source of Information: Patient Limitations: No Limitations Time Seen by Provider: 12/17/23 12:15 Description of Symptoms (Recalled from Triage Doc. by RN): PATIENT C/O COUGH, SORE THROAT, HEAD CONGESTION, AND LOSS OF VOICE X 1 WEEK HEENT Symptoms (Recalled from RN notes): Yes Resp Symptoms (Recalled from RN notes): Yes Skin Symptoms (Recalled from RN notes): No MS Symptoms (Recalled from RN notes): No Functional Status (Recalled from RN notes): WNL History of Present Illness Provider Complaint: Patient states that she has been sick over a week having sinus pain and pressure, sore throat, cough and head congestion so today when she wasnt feeling any better she came in to get checked Related Data Home Medications ?Medication ?Instructions ?Recorded ?Confirmed etonogestrel 68 mg subdermal 1 implant subdermal DIRECTED 08/23/21 12/17/23 implant (Nexplanon) Previous Rx's ?Medication ?Instructions ?Recorded amoxicillin 875 mg-potassium 1 tab PO Q12H 7 days #20 tabs 12/17/23 clavulanate 125 mg tablet pseudoephedrine HCl 120 mg 120 mg PO Q12H PRN nasal 12/17/23 tablet,extended release (Sudafed congestion #20 tabs 12 Hour) Allergies Allergy/AdvReac Type Severity Reaction Status Date / Time diphenhydramine Allergy Intermediate Hives Verified 09/15/23 23:04 [From BENADRYL] Worker's Comp Is this a Worker's Comp case?: No [facility] Disclaimer: The information contained in this section may have been updated after the patient was seen, as this information can be updated by other users. Surgical History (Updated 12/17/23 @ 12:03 by Esme Hart RN) History of tonsillectomy History of appendectomy Social History Smoking Status: Current every day smoker tobacco type: e-cigarettes alcohol intake: never current occupational status: other Travel in the last 8 weeks: None housing: house ROS Obtained: Yes All systems reviewed & no additional complaints except as documented and Yes Systems reviewed as appropriate & no additional complaints except as documented Constitutional Constitutional: Reports system reviewed and no additional complaints, except as documented and Reports as per HPI ENT Ears, Nose, Mouth, and Throat: Reports system reviewed and no additional complaints, except as documented, Reports as per HPI, Reports sinus pain, Reports sinus pressure and Reports sore throat Cardiovascular Cardiovascular: Reports system reviewed and no additional complaints, except as documented and Reports as per HPI Respiratory Respiratory: Reports system reviewed and no additional complaints, except as documented, Reports as per HPI and Reports cough Gastrointestinal Gastrointestingal: Reports system reviewed and no additional complaints, except as documented and as per HPI Physical Exam General General appearance: alert and in no apparent distress ENT ENT exam: Present mucous membranes moist Expanded ENT Exam Nose exam: Present sinus tenderness Throat exam: Present other (Pharyngeal erythema noted with PND) Respiratory Respiratory exam: Present normal lung sounds bilaterally; Absent respiratory distress or wheezes Cardiovascular Cardiovascular exam: Present regular rate, normal rhythm and normal heart sounds Neurological Exam Neurological exam: Present alert, oriented X3 and normal gait Medical Decision Making Vasquez Inquiry Pt receiving controlled substance: No Vasquez was queried for this patient: No Vital Signs: 12/17/23 11:50 Temperature 98.0 F Temperature Source Oral Pulse Rate [Left Brachial] 73 Respiratory Rate 20 Blood Pressure [Left Arm] 111/75 Blood Pressure Mean [Left Arm] 87 Blood Pressure Source [Left Arm] Automatic Cuff Blood Pressure Position [Left Arm] Sitting 02 Sat by Pulse Oximetry 98 Oxygen Delivery Method Room Air
[2023-12-17 12:21] VITALS: BP 111/75; PULSE 73; RESP 20; TEMP 36.7; O2SAT 98
== END 2023-12-17 12:28 | disposition home or self-care (01) ==
PROVIDERS: Emergency Provider Nurse Practitioner
DX: J01.90 Acute sinusitis, unspecified (principal); R07.0 Pain in throat; R05.9 Cough, unspecified
CPT/HCPCS: 99212; 99214; G0463

== ENCOUNTER 2024-01-17 20:46 | Emergency (ER) | payer OTHER, SELFPAY ==
[2024-01-17 20:48] VITALS: BP 138/90; PULSE 99; RESP 16; TEMP 36.5; O2SAT 100; BMI 28.3
--- NOTE | 2024-01-17 20:59 | CT_ITS ---
PROCEDURE INFORMATION: Exam: CT Maxillofacial With Contrast Exam date and time: 01/17/2024 10:05 PM Age: 28 years old Clinical indication: Jaw pain; Additional info: Left face swelling, concern for dental abscess TECHNIQUE: Imaging protocol: Computed tomography of the face with contrast. Radiation optimization: All CT scans at this facility use at least one of these dose optimization techniques: automated exposure control; mA and/or kV adjustment per patient size (includes targeted exams where dose is matched to clinical indication); or iterative reconstruction. Contrast material: ISOVUE; Contrast volume: 75 ml; Contrast route: IV; COMPARISON: No relevant prior studies available. FINDINGS: Paranasal sinuses: No air-fluid levels. Orbital cavities: Orbits are normal. Globes are unremarkable. Teeth: Evidence of multiple caries involving the maxillary and mandibular alveolus. There is a 1.2 cm periapical cystic lucency surrounding the last the remnants of the last molar tooth within the left maxillary alveolus with cortical dehiscence involving the outer (buccal) cortex consistent with dental abscess. There is some adjacent swelling and indistinct fat stranding extending into the left cheek secondary cellulitis. There is no soft tissue abscess collection. Lymph nodes: There is mild cervical lymphadenopathy involving the anterior and posterior cervical chains within the upper neck as well as a mildly enlarged intraparotid lymph nodes bilaterally, nonspecific. Bones: No acute fracture. Soft tissues: Unremarkable. IMPRESSION: 1. Multiple dental caries with findings consistent with dental abscess involving last molar tooth within the left maxillary alveolus with adjacent cellulitis within the left cheek. 2. Mild cervical lymphadenopathy within the upper neck bilaterally, nonspecific. Follow-up as clinically indicated.
--- NOTE | 2024-01-17 21:04 | ED_ITS ---
Discharge Plan Disposition Patient Disposition: Home, Self-Care Condition: Good Prescriptions Prescriptions: New amoxicillin-pot clavulanate 875-125 mg tablet 1 tab PO BID Qty: 20 0RF No Action Nexplanon 68 mg implant 1 implant SUBDERMAL DIRECTED amoxicillin-pot clavulanate 875-125 mg Tablet 1 tab PO Q12H 7 Days Qty: 20 0RF pseudoephedrine HCl [Sudafed 12 Hour] 120 mg tablet extended release 120 mg PO Q12H PRN (Reason: nasal congestion) Qty: 20 0RF Referrals Follow up/Referrals: Provider,Referral, MD [Primary Care Provider] - See instructions Activity Restrictions/Add. Instructions Additional Instructions/Restrictions: Follow-up with your dentist tomorrow to discuss having your teeth extracted sooner rather than later. Take the antibiotics as prescribed. If you develop any new or worsening symptoms, such as fever, difficulty swallowing, difficulty breathing, or if you become concerned for your health for any reason, return to the emergency department for evaluation. Clinical Impressions Clinical Impression: Abscess, dental Print Language Print Language: Frisian Discharge ED Provider: Rajat Tsang Adult HPI General Chief complaint: Dental/Oral Stated complaint: facial swelling Time Seen by Provider: 01/17/24 20:52 Mode of Arrival: Ambulatory Source of Information: Patient Limitations: No Limitations Description of Symptoms (Recalled from ER Triage Doc. by RN): Pt to ED with c/o left facial pain and swelling History of Present Illness HPI narrative: Margo Ambrocio is a 28F with a past medical history of soft teeth and poor dentition but otherwise no significant past medical history who presents to the emergency department for left-sided facial swelling. Patient states that she noticed some swelling to her left lip that began this morning. She states that she napped this afternoon and woke up with swelling worsened to the left side of her face in the cheek area. She notes that she is followed by dentistry in [place] and was told that she needs to have her teeth extracted but does not have a scheduled date at this time. She is concerned this could be from her teeth. She denies any eye pain, pain with extraocular movement, fever, difficulty swallowing or shortness of breath. Related Data Home Medications ?Medication ?Instructions ?Recorded ?Confirmed etonogestrel 68 mg subdermal 1 implant subdermal DIRECTED 08/23/21 12/17/23 implant (Nexplanon) Previous Rx's ?Medication ?Instructions ?Recorded amoxicillin 875 mg-potassium 1 tab PO Q12H 7 days #20 tabs 12/17/23 clavulanate 125 mg tablet pseudoephedrine HCl 120 mg 120 mg PO Q12H PRN nasal 12/17/23 tablet,extended release (Sudafed congestion #20 tabs 12 Hour) amoxicillin 875 mg-potassium 1 tab PO BID #20 tabs 01/18/24 clavulanate 125 mg tablet Allergies Allergy/AdvReac Type Severity Reaction Status Date / Time diphenhydramine Allergy Intermediate Hives Verified 09/15/23 23:04 [From BENADRYL] [facility] Disclaimer: The information contained in this section may have been updated after the patient was seen, as this information can be updated by other users. Surgical History (Updated 12/17/23 @ 12:03 by Esme Hart RN) History of tonsillectomy History of appendectomy Social History Smoking Status: Never smoker alcohol intake: never current occupational status: other Travel in the last 8 weeks: None housing: house Other Medical History Have you received the Flu Vaccine for this season: No Have you received the Pneumonia Vaccine: No ROS Obtained: Yes Systems reviewed as appropriate & no additional complaints except as documented Physical Exam General General appearance: alert and in no apparent distress Head Head exam: atraumatic Eye Eye exam: Present normal appearance, PERRL and EOMI ENT ENT exam: Present normal oropharynx, normal external ear exam and other (Swelling and mild tenderness over the left cheek extending from the left lip to the mid cheek. Poor dentition throughout, more prominent along the anterior maxillary teeth with significant decay. No tenderness to percussion.) Neck Neck exam: Present full ROM Chest Chest inspection: Present symmetric chest wall rise Respiratory Respiratory exam: Present normal lung sounds bilaterally; Absent respiratory distress Cardiovascular Cardiovascular exam: Present regular rate and normal rhythm Abdominal Exam Abdominal exam: Present soft; Absent tenderness or guarding Extremities Exam Extremities exam: Present normal inspection Back Exam Back exam: Present normal inspection Neurological Exam Neurological exam: Present alert and oriented X3 Psychiatric Psychiatric exam: Present normal affect Skin Skin exam: Present warm and dry Medical Decision Making Medical Records Medical records reviewed: Yes I reviewed the patient's medical records. Screening: Per USPSTF and CDC recommendations, given the prevalence of disease in our [facility], it is our hospital?s policy to screen for HIV and viral Hepatitis for all patients aged 18 and over and those with ongoing risk factors. Vasquez Inquiry Pt receiving controlled substance: No Vital Signs: 01/17/24 20:48 01/17/24 21:30 01/17/24 22:31 Temperature 97.7 F Temperature Source Oral Pulse Rate 76 73 Pulse Rate [Right Radial] 99 H Respiratory Rate 16 Blood Pressure 116/75 115/66 Blood Pressure [Right Arm] 138/90 Blood Pressure Mean [Right Arm] 106 Blood Pressure Source [Right Arm] Automatic Cuff Blood Pressure Position [Right Arm] Sitting 02 Sat by Pulse Oximetry 100 98 99 Oxygen Delivery Method Room Air 01/17/24 23:01 01/17/24 23:54 Temperature Temperature Source Pulse Rate 69 68 Pulse Rate [Right Radial] Respiratory Rate Blood Pressure 124/74 119/78 Blood Pressure [Right Arm] Blood Pressure Mean [Right Arm] Blood Pressure Source [Right Arm] Blood Pressure Position [Right Arm] 02 Sat by Pulse Oximetry 100 100 Oxygen Delivery Method Lab Data Lab Results 01/17/24 21:25: Serum HCG, Qual Negative Orders (Tests/Meds): ED MEDICATIONS Generic Name Dose Route Start Last Admin Trade Name Freq PRN Reason Stop Dose Admin Sodium Chloride 10 ml 01/17/24 22:08 01/17/24 22:08 Sodium Chloride 0.9% 10ml Syr (Rad Only) IV 02/16/24 22:07 10 ml NEEDED PRN Administration Maintain IV Site Discontinued Medications Generic Name Dose Route Start Last Admin Trade Name Freq PRN Reason Stop Dose Admin Iopamidol 75 ml 01/17/24 22:08 01/17/24 22:08 Iopamidol-370 (76%);100ml Bottle IV 01/17/24 22:09 75 ml ONCE ONE Administration ORDERS Category Date Time Status CT facial bones w con Stat Cat Scan 01/17/24 20:59 Completed Serum [HCG Qualitative, Serum] Stat Lab 01/17/24 21:25 Completed Medical Decision Narrative: Margo Ambrocio is a 28-year-old female with a history of soft teeth but no other significant medical history presents to the emergency department for complaints of left facial swelling that began today. She states that she woke up with swelling to the left side of her face this morning that worsened throug hout the day, specifically after she woke up from a nap prior to arrival. She denies any fever, eye pain, pain with extraocular movements, difficulty swallowing or difficulty breathing. She believes that it is from her poor dentition. She notes that she is followed by dentistry in [place] and has been told that she is going to have to have her teeth extracted but does not have a date currently. On arrival, patient is hemodynamically stable, afebrile, heart rate within normal limits, breathing comfortably on room air. Physical exam, stated above, demonstrated swelling to the left cheek as well as poor dentition throughout, more prominently along the anterior maxillary teeth with significant decay to these areas. She does not have any pain with extraocular movement and no erythema along the face. She has mild tenderness over the the swelling to the left cheek. Differential diagnosis: Dental abscess, preseptal cellulitis, orbital cellulitis, allergic reaction, among others. Lab studies were considered, however given the patient's presentation, is felt that these would not change ED management and are not indicated at this time. Patient does not appear septic at this time. This does not appear to be an allergic reaction and there is concerned that the source of her swelling is from dental source given her poor dentition and location of the swelling. CT face with IV contrast was obtained to evaluate for any abscesses. Patient has a negative test. CT imaging was interpreted by me personally prior to official radiology read and demonstrated multiple dental caries with dental abscess along the molar tooth as well as cellulitis within the left cheek. See radiology report for final details. Given these findings, is felt that the patient would benefit from a course of antibiotics and is being prescribed Augmentin. She was instructed to contact her dentistry team from [place] tomorrow to discuss having her teeth extracted sooner rather than later. She was given return precautions. All questions were answered. She demonstrated understanding and was in agreement this plan. She was then discharged from the emergency department in stable con dition Critical Care Critical Care Time Critical Care Time: No
[2024-01-17 21:30] VITALS: BP 116/75; PULSE 76; O2SAT 98
[2024-01-17 21:55] LABS: HCG Qualitative, Serum Negative (Negative)
--- NOTE | 2024-01-17 22:02 | PC.NURSE ---
pt to CT at this time
[2024-01-17] MEDS: IOPAMIDOL-370 (76%);100ML BOTTLE 75 ML IV (22:08)
[2024-01-17] MEDS: SODIUM CHLORIDE 0.9% 10ML SYR (RAD ONLY) 10 ML IV (22:08)
[2024-01-17 22:31] VITALS: BP 115/66; PULSE 73; O2SAT 99
[2024-01-17 23:01] VITALS: BP 124/74; PULSE 69; O2SAT 100
[2024-01-17 23:54] VITALS: BP 119/78; PULSE 68; O2SAT 100
[2024-01-18 00:19] VITALS: BP 111/83; PULSE 83; RESP 16; TEMP 36.5; O2SAT 100
== END 2024-01-18 00:20 | disposition home or self-care (01) ==
PROVIDERS: Emergency Provider Student in an Organized Health Care Education/Training Program
DX: K04.7 Periapical abscess without sinus (principal); R22.0 Localized swelling, mass and lump, head
CPT/HCPCS: 70487; 84703; 99284; Q9967

== ENCOUNTER 2024-05-15 14:05 | Emergency (ER) | payer OTHER, SELFPAY ==
[2024-05-15 15:26] VITALS: BP 132/88; PULSE 75; RESP 20; TEMP 37.1; O2SAT 99; BMI 34.1
--- NOTE | 2024-05-15 15:36 | ED_ITS ---
Discharge Plan Disposition Patient Disposition: Home, Self-Care Condition: Good Prescriptions Prescriptions: New amoxicillin-pot clavulanate 875-125 mg Tablet 1 tab PO Q12H Qty: 20 0RF Referrals Follow up/Referrals: Provider,Referral, MD [Primary Care Provider] - See instructions Activity Restrictions/Add. Instructions Additional Instructions/Restrictions: Take over the counter Motrin and/or Tylenol for pain Take oral antibiotics as prescribed Follow up with Dentist as soon as possibel Clinical Impressions Clinical Impression: Abscess, dental Instructions Patient Instructions: DI for Tooth Abscess, Tooth Abscess, Amoxicillin and Clavulanic Acid Print Language Print Language: Maldivian Discharge ED Provider: Katherine Vasquez [facility] [place] General Stated complaint: Pain in L ear, swelling L side of face Mode of Arrival: Ambulatory Source of Information: Patient Limitations: No Limitations Time Seen by Provider: 05/15/24 15:37 Description of Symptoms (Recalled from Triage Doc. by RN): PAIN IN LEFT EAR AND SWELLING IN LEFT SIDE OF FACE HEENT Symptoms (Recalled from RN notes): Yes Resp Symptoms (Recalled from RN notes): No Skin Symptoms (Recalled from RN notes): No MS Symptoms (Recalled from RN notes): No Functional Status (Recalled from RN notes): NA History of Present Illness Provider Complaint: Patient states that she has been having pain and swelling in her left jaw area for several days and causing pain into her left ear States she is not sure if she may have a bad tooth or bad ear infection Related Data Previous Rx's ?Medication ?Instructions ?Recorded amoxicillin 875 mg-potassium 1 tab PO Q12H #20 tabs 05/15/24 clavulanate 125 mg tablet Allergies Allergy/AdvReac Type Severity Reaction Status Date / Time diphenhydramine (From Allergy Intermediate Hives Verified 09/15/23 23:04 BENADRYL) Worker's Comp Is this a Worker's Comp case?: No [facility] Disclaimer: The information contained in this section may have been updated after the patient was seen, as this information can be updated by other users. Surgical History (Updated 12/17/23 @ 12:03 by Esme Hart RN) History of tonsillectomy History of appendectomy Social History Smoking Status: Never smoker alcohol intake: never current occupational status: other Travel in the last 8 weeks: None housing: house Have you lived/traveled outside US in past 30 days?: No Contact w/someone who lives/traveled outside US past 30 days?: No Exposure to someone with infectious disease in past 14 days?: No Do you have a fever (greater than 100.4 F or 38 C)?: No Have you tested positive for COVID-19: No Exposed to someone with COVID-19 in past 14 days?: No Do you have a sore throat?: No Do you have a cough?: No Do you have any weakness?: No Do you have any diarrhea?: No Are you experiencing any unusual bleeding?: No Do you have any muscle aches/pain?: No Do you have any abdominal pain?: No Are you experiencing loss of taste or smell?: No ROS Obtained: Yes All systems reviewed & no additional complaints except as documented and Yes Systems reviewed as appropriate & no additional complaints except as documented Constitutional Constitutional: Reports system reviewed and no additional complaints, except as documented, Reports as per HPI, Denies body ache, Denies chills and Denies fever(s) ENT Ears, Nose, Mouth, and Throat: Reports system reviewed and no additional complaints, except as documented, Reports as per HPI, Reports dental pain and Reports otalgia Cardiovascular Cardiovascular: Reports system reviewed and no additional complaints, except as documented and Reports as per HPI Respiratory Respiratory: Reports system reviewed and no additional complaints, except as documented and Reports as per HPI Gastrointestinal Gastrointestingal: Reports system reviewed and no additional complaints, except as documented and as per HPI Genitourinary Female Genitourinary: Reports system reviewed and no additional complaints, except as documented and Reports as per HPI Physical Exam General General appearance: alert and in no apparent distress ENT ENT exam: Present mucous membranes moist Expanded ENT Exam TM/Canal exam: Left TM: erythema and bulging Teeth exam: Present dental caries, dental tenderness # and gingival swelling (swelling noted in her left gum area appears like abscess) Respiratory Respiratory exam: Present normal lung sounds bilaterally; Absent respiratory distress or wheezes Cardiovascular Cardiovascular exam: Present regular rate, normal rhythm and normal heart sounds Neurological Exam Neurological exam: Present alert, oriented X3 and normal gait Medical Decision Making Medical Records Screening: Per USPSTF and CDC recommendations, given the prevalence of disease in our region, it is our hospital?s policy to screen for HIV and viral Hepatitis for all patients aged 18 and over and those with ongoing risk factors. Vasquez Inquiry Pt receiving controlled substance: No Vasquez was queried for this patient: No Vital Signs: 05/15/24 15:26 Temperature 98.8 F Temperature Source Oral Pulse Rate [Left Radial] 75 Respiratory Rate 20 Blood Pressure [Right Arm] 132/88 Blood Pressure Mean [Right Arm] 102 02 Sat by Pulse Oximetry 99
[2024-05-15 16:00] VITALS: BP 132/88; PULSE 75; RESP 20; TEMP 37.1; O2SAT 99
== END 2024-05-15 16:00 | disposition home or self-care (01) ==
PROVIDERS: Emergency Provider Nurse Practitioner
DX: K04.7 Periapical abscess without sinus (principal)
CPT/HCPCS: 99212; G0381

== ENCOUNTER 2024-10-12 17:49 | Emergency (ER) | payer OTHER, SELFPAY ==
--- OUTSIDE RECORDS SUMMARY | 2024-10-12 17:56 | XMS_ITS | Clinical Summary ---
Author Organization [facility] [employer] OFFICE Address [facility] [email or web address] [address] [address] Care Team Providers Care Anesthesia Technician Name Role Phone Unavailable Primary Care Provider Unavailabl e Allergies Active Allergy Reactions Criticality Noted Date Comments Benadryl Decongestant Rash Medications No known medications Active Problems No known active problems Immunizations Immunization Administration Dates Next Due DTaP 12/21/2006, 0,01/13/1997,1995,1995,1995 Hepatitis B, Unspecified Formulation 1995, 1995,1995 HiB, Unspecified Formulation 01/13/1997, 1995,1995,1995 IPV 11/23/1999,199 6,1995,1995 MMR 11/23/1999,03/16/1996 Varicella 01/13/1997 Surgical History Surgery Date Site/Laterality Comments APPENDECTOMY 2009 TONSILLECTOMY age 2 Medical History Medical History Date Comments Seasonal allergies Family History Medical History Relation Name Comments Cancer Maternal Grandmother cervica l Diabetes Paternal Grandmother Relation Name Status Comments Maternal Grandmother Paternal Grandmother Social History Tobacco Use Types Packs/Day Years Used Date Smoking Tobacco: Never Alcohol Use Standard Drinks/Week Comments No 0 (1 standard drink = 0.6 oz pur e alcohol) Comments No Sex and Gender Information Value Date Recorded Sex Assigned at Not on file Legal Sex Female 4:43 AM EDT Gender Identity Not on file Sexual Orientation Not on file Obstetrics History Last Filed Vital Signs Vital Sign Reading Time Taken Comments Blood Pressure 122/50 05/19/2011 7:15 PM EST Pulse 70 05/19/2011 7:15 PM EST Temperature 36.7 C (98 F) 05/19/2011 7:15 PM EST Respiratory Rate 16 05/19/2011 7:15 PM EST Oxygen Saturation 100% 05/19/2011 7:15 PM EST Inhaled Oxygen Concentration - - Weight 78 kg (172 lb) 05/19/2011 7:15 PM EST Height 154.9 cm (5' 1 ) 05/04/2011 4:27 PM EST Body Mass Index - - Plan of Treatment Health Maintenance Due Date Last Done Comments Annual Wellness Exam 1998 DTaP/TDaP/Td (7 - Tdap) 12/21/2016 12/22/19 07, 11/23/1999, 01/13/1997, Additional history exists COVID-19 Vaccine ( season) 2023 Influenza Vaccine (#1) 2024 Hepatitis B Vaccine Completed 1995, 1995, 1995 Meningococcal B Vaccine Aged Out No l onger eligible based on patient's age to complete this topic Pneumococcal Vaccine 0-49 Aged Out No longer eligible based on patient's age to complete this topic
[2024-10-12 17:58] VITALS: BP 125/72; PULSE 80; RESP 16; TEMP 37.1; O2SAT 98; BMI 32.5
--- NOTE | 2024-10-12 18:04 | ED_ITS ---
Discharge Plan Disposition Patient Disposition: Home, Self-Care Condition: Fair Prescriptions Prescriptions: New prednisone 20 mg tablet 20 mg PO BID 5 Days Qty: 10 0RF No Action Nexplanon 68 mg implant 1 implant subdermal Referrals Follow up/Referrals: Provider,Referral, [Primary Care Provider, Medical] - See instructions Activity Restrictions/Add. Instructions Additional Instructions/Restrictions: Take meds as directed. Clinical Impressions Clinical Impression: Insect bites Instructions Patient Instructions: How to Care for an Insect Bite or Sting Print Language Print Language: Polish Discharge ED Provider: Rajat Tsang General Adult HPI <Carla Hill (ED), [employer] - Last Filed: 10/12/24 19:55> General Chief complaint: Skin/Abscess/Foreign Body Stated complaint: Wasp sting on right hand Time Seen by Provider: 10/12/24 18:03 Mode of Arrival: Ambulatory Source of Information: Patient Description of Symptoms (Recalled from ER Triage Doc. by RN): pt presents to ED with c/o right index finger wasp sting. pt went to swat wasp away and pt got stung accidentally. pt reports allergy to benadryl and last time this happened she recieved steroid shot and steroid cream that helped in the past. History of Present Illness HPI narrative: 29-year-old female presents to the ED today after being stung by wasp on the finger on the right hand. Patient has an allergy to Benadryl. She says last time this happened she had to get a steroid shot and pills. She says she is not deathly allergic but she does swell up. Related Data Home Medications ?Medication ?Instructions ?Recorded ?Confirmed etonogestrel 68 mg subdermal 1 implant subdermal 08/2108/21/24 implant (Nexplanon) Previous Rx's ?Medication ?Instructions ?Recorded prednisone 20 mg tablet 20 mg PO BID 5 days #10 tabs 10/12/24 Allergies Allergy/AdvReac Type Severity Reaction Status Date / Time diphenhydramine (From Allergy Intermediate Hives Verified 08/21/24 10:42 BENADRYL) [facility] <Carla Hill (ED), [employer] - Last Filed: 10/12/24 19:55> [facility] Disclaimer: The information contained in this section may have been updated after the patient was seen, as this information can be updated by other users. Medical History (Updated 10/12/24 @ 18:15 by Carla Hill (ED), [employer]) Encounter for removal and reinsertion of Nexplanon Surgical History History of tonsillectomy History of appendectomy Family History (Updated 08/21/24 @ 10:52 by SANDRA Knutson) Grandmother Cancer Family/Other Cancer Social History (Updated 08/21/24 @ 10:50 by SANDRA Knutson) Smoking Status: Current every day smoker tobacco type: e-cigarettes alcohol intake: never current occupational status: other Travel in the last 8 weeks?: None housing: house Have you lived/traveled outside US in past 30 days?: No Contact w/someone who lives/traveled outside US past 30 days?: No Exposure to someone with infectious disease in past 14 days?: No Do you have a fever (greater than 100.4 F or 38 C)?: No Have you tested positive for COVID-19?: No Exposed to someone with COVID-19 in past 14 days?: No Do you have a sore throat?: No Do you have a cough?: No Do you have any weakness?: No Do you have any diarrhea?: No Are you experiencing any unusual bleeding?: No Do you have any muscle aches/pain?: No Do you have any abdominal pain?: No Are you experiencing loss of taste or smell?: No Other Medical History Have you received the Flu Vaccine for this season: No Have you received the Pneumonia Vaccine: No <Carla Hill (ED), [employer] - Last Filed: 10/12/24 19:55> ROS Obtained: Yes Systems reviewed as appropriate & no additional complaints except as documented Constitutional Constitutional: Reports as per HPI Physical Exam <Carla Hill (ED), [employer] - Last Filed: 10/12/24 19:55> General General appearance: alert and in no apparent distress Head Head exam: normocephalic Eye Eye exam: Present PERRL and EOMI ENT ENT exam: Present normal oropharynx and mucous membranes moist Neck Neck exam: Present full ROM and trachea midline Respiratory Respiratory exam: Present normal lung sounds bilaterally Cardiovascular Cardiovascular exam: Present regular rate, normal rhythm, normal heart sounds, +S1 and +S2 Extremities Exam Extremities exam: Present normal inspection, full ROM, normal capillary refill and joint swelling Neurological Exam Neurological exam: Present alert, oriented X3 and normal gait Skin Skin exam: Present warm, dry, intact and erythema Medical Decision Making <Carla Hill (ED), [employer] - Last Filed: 10/12/24 19:55> Medical Records Screening: Per USPSTF and CDC recommendations, given the prevalence of disease in our region, it is our hospital?s policy to screen for HIV and viral Hepatitis for all patients aged 18 and over and those with ongoing risk factors. Vasquez Inquiry Pt receiving controlled substance: No Vasquez was queried for this patient: No Vital Signs: 10/12/24 17:58 10/12/24 18:37 Temperature 98.8 F 98.4 F Temperature Source Oral Pulse Rate 91 H Pulse Rate [Left Radial] 80 Respiratory Rate 16 19 Blood Pressure 128/78 Blood Pressure [Right Arm] 125/72 Blood Pressure Mean [Right Arm] 89 02 Sat by Pulse Oximetry 98 Oxygen Delivery Method Room Air Orders (Tests/Meds): ED MEDICATIONS Discontinued Medications Generic Name Dose Route Start Last Admin Trade Name Jsq PRN Reason Stop Dose Admin Dexamethasone Sodium Phosphate 8 mg 10/12/24 18:03 10/12/24 18:18 Dexamethasone 4mg/Ml 1ml Vial IV 10/12/24 18:04 Not Given ONCE ONE Dexamethasone Sodium Phosphate 8 mg 10/12/24 18:18 10/12/24 18:20 Dexamethasone 4mg/Ml 1ml Vial IM 10/12/24 18:19 8 mg ONCE ONE Administration Medical Decision Narrative: patient is a 29-year-old female presenting to the emergency department for evaluation of bee sting on her right index finger. Patient is hemodynamically stable and nontoxic-appearing upon arrival, afebrile. Differential diagnosis includes bee sting, cellulitis among other. Labs considered but not completed as patient said that she is allergic to bee stings and knows she was stung by wasp. She says that she was stung last year and had to get a steroid shot and pills. She is allergic to bee stings. Patient is stable for discharge home. <Rajat Tsang MD - Last Filed: 10/13/24 02:43> Vital Signs: 10/12/24 17:58 10/12/24 18:37 Temperature 98.8 F 98.4 F Temperature Source Oral Pulse Rate 91 H Pulse Rate [Left Radial] 80 Respiratory Rate 16 19 Blood Pressure 128/78 Blood Pressure [Right Arm] 125/72 Blood Pressure Mean [Right Arm] 89 02 Sat by Pulse Oximetry 98 Oxygen Delivery Method Room Air Orders (Tests/Meds): ED MEDICATIONS Discontinued Medications Generic Name Dose Route Start Last Admin Trade Name Jsq PRN Reason Stop Dose Admin Dexamethasone Sodium Phosphate 8 mg 10/12/24 18:03 10/12/24 18:18 Dexamethasone 4mg/Ml 1ml Vial IV 10/12/24 18:04 Not Given ONCE ONE Dexamethasone Sodium Phosphate 8 mg 10/12/24 18:18 10/12/24 18:20 Dexamethasone 4mg/Ml 1ml Vial IM 10/12/24 18:19 8 mg ONCE ONE Administration Medical Decision Narrative: patient is a 29-year-old female presenting to the emergency department for evaluation of bee sting on her right index finger. Patient is hemodynamically stable and nontoxic-appearing upon arrival, afebrile. Differential diagnosis includes bee sting, cellulitis among other. Labs considered but not completed as patient said that she is allergic to bee stings and knows she was stung by wasp. She says that she was stung last year and had to get a steroid shot and pills. She is allergic to bee stings. Patient is stable for discharge home. I was consulted by the VARUN, and we discussed the complexity of the problems being addressed. I approve the treatment and management plan for this patient's care in the emergency department, thus performing a substantive portion of the medical decision making. Rajat Tsang MD Critical Care <Carla Hill (ED), [employer] - Last Filed: 10/12/24 19:55> Critical Care Time Critical Care Time: No
[2024-10-12] MEDS: DEXAMETHASONE 4MG/ML 1ML VIAL 8 MG IM (18:20)
[2024-10-12 18:37] VITALS: BP 128/78; PULSE 91; RESP 19; TEMP 36.9
== END 2024-10-12 18:38 | disposition home or self-care (01) ==
PROVIDERS: Emergency Provider Student in an Organized Health Care Education/Training Program
DX: S60.561A Insect bite (nonvenomous) of right hand, initial encounter (principal); W57.XXXA Bitten or stung by nonvenomous insect and other nonvenomous arthropods, initial encounter; F17.210 Nicotine dependence, cigarettes, uncomplicated
CPT/HCPCS: 96372; 96374; 99284; J1100

== ENCOUNTER 2025-01-07 17:57 | Emergency (ER) | payer OTHER, SELFPAY ==
[2025-01-07 18:11] VITALS: BP 152/85; PULSE 88; RESP 18; TEMP 36.7; O2SAT 98; BMI 29.9
--- NOTE | 2025-01-07 18:22 | ED_ITS ---
<Statement entered by Eufemia Pratt DO - 01/08/25 01:03> I was consulted by the VARUN, and we discussed the complexity of problems being addressed. I approve the treatment and management plan for this patient's care in the emergency department, thus performing a substantial portion of the medical decision making. Eufemia Pratt DO Discharge Plan Disposition Patient Disposition: Home, Self-Care Condition: Good Prescriptions Prescriptions: No Action Nexplanon 68 mg implant 1 implant subdermal prednisone 20 mg tablet 20 mg PO BID 5 Days Qty: 10 0RF Referrals Follow up/Referrals: Provider,Referral, MD [Primary Care Provider, Medical] - See instructions Activity Restrictions/Add. Instructions Additional Instructions/Restrictions: Please return to the emergency department with any worsening signs or symptoms, please follow-up with your audio experience expert/lead programmer analyst in the upcoming days. Please utilize your ointment 4 times daily for 5 days or until eye doctor follow-up. Instructions: * Wash your hands thoroughly with soap and water.? * Remove the cap from the ointment tube.? * Tilt your head back slightly and pull down your lower eyelid to create a pocket.? * Apply a small amount of ointment (about the size of a grain of rice) to the inside of the pocket.? * Release the eyelid and close your eye gently.? * Blink several times to spread the ointment evenly over the surface of your e ye.? * Wipe away any excess ointment with a clean tissue.? * Replace the cap on the tube and clean it with a cotton ball or tissue.? Clinical Impressions Clinical Impression: Abrasion of cornea, right Instructions Patient Instructions: DI for Corneal Abrasion Print Language Print Language: Maltese Discharge ED Provider: Eufemia Pratt General Adult HPI General Chief complaint: Eye Problems Stated complaint: AO 10-1 hit in right eye with foreign object Time Seen by Provider: 01/07/25 18:18 Mode of Arrival: Ambulatory Source of Information: Patient Description of Symptoms (Recalled from ER Triage Doc. by RN): Pt states she was riding a lawnmower when something flew up and hit her eye. Pt complains of burning and stinging in the eye, but no pain. Pt complains of slight blurry vision if she looks to far to the right. Eye is red. History of Present Illness HPI narrative: 29-year-old female presents the emergency department with right eye discomfort/irritation after mowing the lawn , patient states while she was mo wing the lawn she felt something hit her eye , she denies any blurry vision except for when she looks very far to the right , she describes it as slight, no double vision no flashes or floaters, no curtain over the vision, no fever chills chest pain shortness of breath, does have a slight headache, denies any nausea vomiting constipation diarrhea, no urinary symptomatology, no abdominal pain. Patient is currently a smoker, (vapes), denies any alcohol or drug use. No other relevant past medical history takes no other medications at home. Of note patient does not wear any contacts or corrective lenses. Please note that above description of symptoms, in this electronic medical record under categorization of recalled from ER triage doctor by RN are reflective of an initial nursing assessment, however, is not reflective of my full history and physical exam that was personally taken and clarified. Consequentially, this preceding description of symptoms, which may include the patient's categorized chief complaint in the EMR, do not reflect my personal clinical impression, and the ultimate description of history of present illness and patient stated complaints should be deferred to this section of the note. Unless stated otherwise or congruent with this section of the note, additional signs, symptoms, or incongruence should be interpreted as inaccurate with my clinical impression. Onset (ago): hour(s) Related Data Home Medications ?Medication ?Instructions ?Recorded ?Confirmed etonogestrel 68 mg subdermal 1 implant subdermal 08/2108/21/24 implant (Nexplanon) Previous Rx's ?Medication ?Instructions ?Recorded prednisone 20 mg tablet 20 mg PO BID 5 days #10 tabs 10/12/24 Allergies Allergy/AdvReac Type Severity Reaction Status Date / Time diphenhydramine (From Allergy Intermediate Hives Verified 08/21/24 10:42 BENADRYL) [facility] Disclaimer: The information contained in this section may have been updated after the patient was seen, as this information can be updated by other users. Medical History (Updated 01/07/25 @ 18:53 by GALLITO Du) Encounter for removal and reinsertion of Nexplanon Surgical History History of tonsillectomy History of appendectomy Family History (Updated 08/21/24 @ 10:52 by SANDRA Knutson) Grandmother Cancer Family/Other Cancer Social History (Updated 08/21/24 @ 10:50 by SANDRA Knutson) Smoking Status: Current every day smoker tobacco type: e-cigarettes alcohol intake: never current occupational status: other Travel in the last 8 weeks?: None housing: house Have you lived/traveled outside US in past 30 days?: No Contact w/someone who lives/traveled outside US past 30 days?: No Exposure to someone with infectious disease in past 14 days?: No Do you have a fever (greater than 100.4 F or 38 C)?: No Have you tested positive for COVID-19?: No Exposed to someone with COVID-19 in past 14 days?: No Do you have a sore throat?: No Do you have a cough?: No Do you have any weakness?: No Do you have any diarrhea?: No Are you experiencing any unusual bleeding?: No Do you have any muscle aches/pain?: No Do you have any abdominal pain?: No Are you experiencing loss of taste or smell?: No Other Medical History Have you received the Flu Vaccine for this season: No Have you received the Pneumonia Vaccine: No ROS Obtained: Yes All systems reviewed & no additional complaints except as documented Physical Exam General General appearance: alert and in no apparent distress Head Head exam: atraumatic and normocephalic Eye Eye exam: Present PERRL, EOMI, conjunctival redness and conjunctival injection; Absent jaundice, discharge or nystagmus ENT ENT exam: Present mucous membranes moist Neck Neck exam: Present normal inspection Chest Chest inspection: Present normal inspection and symmetric chest wall rise Respiratory Respiratory exam: Present normal lung sounds bilaterally; Absent respiratory distress Cardiovascular Cardiovascular exam: Present regular rate and normal rhythm Abdominal Exam Abdominal exam: Present soft; Absent tenderness Extremities Exam Extremities exam: Present normal inspection Neurological Exam Neurological exam: Present alert and oriented X3 Psychiatric Psychiatric exam: Present normal affect Skin Skin exam: Present warm and dry Medical Decision Making Medical Records Medical records reviewed: Yes I reviewed the patient's medical records. Screening: Per USPSTF and CDC recommendations, given the prevalence of disease in our region, it is our hospital?s policy to screen for HIV and viral Hepatitis for all patients aged 18 and over and those with ongoing risk factors. Vasquez Inquiry Pt receiving controlled substance: No Vasquez was queried for this patient: No Vital Signs: 01/07/25 18:11 Temperature 98.0 F Temperature Source Oral Pulse Rate [Right] 88 Respiratory Rate 18 Blood Pressure [Right Arm] 152/85 H Blood Pressure Mean [Right Arm] 107 Blood Pressure Source [Right Arm] Automatic Cuff Blood Pressure Position [Right Arm] Sitting 02 Sat by Pulse Oximetry 98 Oxygen Delivery Method Room Air Orders (Tests/Meds): ED MEDICATIONS Generic Name Dose Route Start Last Admin Trade Name Pan PRN Reason Stop Dose Admin Acetaminophen 500 mg 01/07/25 18:47 01/07/25 18:53 Acetaminophen 500mg Tab PO 01/07/25 18:48 500 mg ONCE ONE Administration Fluorescein Sodium 1 mg 01/07/25 18:53 Fluorescein Sodium 1mg Strip OP 01/07/25 18:54 ONCE ONE Ibuprofen 400 mg 01/07/25 18:47 01/07/25 18:53 Ibuprofen 400 Mg Tablet PO 01/07/25 18:48 400 mg ONCE ONE Administration Tetracaine HCl 0 ml 01/07/25 18:53 Tetracaine 0.5% Opth Michelle 15ml OP 01/07/25 18:54 ONCE ONE Medical Decision Narrative: 29-year-old female presents the emergency department with right eye irritation/foreign body sensation and pain after mowing the lawn today, differential diagnose include but not limited to corneal abrasion, traumatic iritis, ocular foreign body, corneal ulcer, among others. I discussed this patient's case with the attending physician Dr. Pratt Utilizing tetracaine 2 drops, as well as fluorescein dye test and Simon lamp examination, patient has a slight tiny corneal abrasion, around 11 to 12 PM, in her right eye, patient moves the eye, no pain with extraocular movements, negative Sidel sign, patient has intact visual acuity, I believe patient has a small corneal abrasion, no real corneal ulcer formation. Will treat the patient with erythromycin ointment 4 times daily for 5 days or until ophthalmologic follow-up. Will give p.o. Motrin and Tylenol here 400 mg of 500 mg for symptomatic relief. Patient voiced understanding and agreement with current treatment plan/discharge plan. Patient did follow-up with ophthalmology/optometry in the upcoming days. Patient was given strict return precautions. Critical Care Critical Care Time Critical Care Time: No
--- OUTSIDE RECORDS SUMMARY | 2025-01-07 18:24 | XMS_ITS | Clinical Summary ---
Author Organization [employer] [facility] are Address [address] [place] [id number] Phone Care Team Providers Care Radiology Assistant Name Role Phone Unavailable Unavailable Conditions or Problems No information available. Medications No information available. Medications Administered No information available. Allergies, Adverse Reactions, Alerts No information available. Results No information available. Plan of Care Type Date Detail Appointment 09:00 AM [address] [place], [address], Procedures No information available. Vital Signs No information available. Immunizations No information available. Advance Directives No information available.
--- OUTSIDE RECORDS SUMMARY | 2025-01-07 18:25 | XMS_ITS | Clinical Summary ---
Author Organization [facility] [employer] OFFICE Address [facility] [employer] [address] [address] Care Team Providers Care Psychiatric Clinician Name Role Phone Unavailable Primary Care Provider [...] on file Sexual Orientation Not on file Last Filed Vital Signs Vital Sign Reading [...] Additional history exists COVID-19 Vaccine ( season) 2024 Influenza Vaccine (#1) 2024 Hepatitis B Vaccine Completed 1995, 1995, 1995 Meningococcal B Vaccine Aged Out No l onger eligible based on patient's age to complete this topic Pneumococcal Vaccine 0-49 Aged Out No longer eligible based on patient's age to complete this topic
[2025-01-07] MEDS: ACETAMINOPHEN 500MG TAB 500 MG PO (18:53)
[2025-01-07] MEDS: IBUPROFEN 400 MG TABLET PO (18:53)
[2025-01-07] MEDS: TETRACAINE 0.5% OPTH SOL 15ML OP (18:55)
[2025-01-07] MEDS: FLUORESCEIN SODIUM 1MG STRIP 1 MG OP (18:56)
[2025-01-07] MEDS: ERYTHROMYCIN BASE 1 GM OINT...G. 0.5 GM OP (18:57)
[2025-01-07 19:01] VITALS: BP 126/90; PULSE 80; RESP 18; TEMP 36.7; O2SAT 100
== END 2025-01-07 19:02 | disposition home or self-care (01) ==
PROVIDERS: Emergency Provider Student in an Organized Health Care Education/Training Program
DX: S05.01XA Injury of conjunctiva and corneal abrasion without foreign body, right eye, initial encounter (principal); W44.9XXA Unspecified foreign body entering into or through a natural orifice, initial encounter
CPT/HCPCS: 99282; 99283

== ENCOUNTER 2025-04-04 09:05 | Outpatient (CLI) | payer OTHER, SELFPAY ==
[2025-04-04 20:27] LABS: Coronavirus 19, PCR Not Detected (NotDetected); Influenza A, PCR Not Detected (NotDetected); Influenza B, PCR Not Detected (NotDetected)
--- OUTSIDE RECORDS SUMMARY | 2025-04-06 09:13 | XMS_ITS | Clinical Summary ---
Author Organization [employer] [facility] are Address [address] [place] [phone] Phone Care Team Providers Care Strategic Sourcing Specialist Name Role Phone Unavailable Unavailable Conditions or Problems No information available. Medications No information available. Medications Administered No information available. Allergies, Adverse Reactions, Alerts No information available. Results No information available. Plan of Care No information available. Procedures No information available. Vital Signs No information available. Immunizations No information available. Advance Directives No information available.
--- OUTSIDE RECORDS SUMMARY | 2025-04-06 09:13 | XMS_ITS | Clinical Summary ---
Author Organization [facility] [employer] OFFICE Address [facility] [employer] [address] [address] Care Team Providers Care Cheese Cook Name Role Phone Unavailable Primary Care Provider Unavailabl e Allergies Active Allergy Reactions Criticality Noted Date Comments Benadryl Decongestant Rash Medications No known medications Active Problems No known active problems Immunizations Immunization Administration Dates Next Due DTaP 12/21/2006, 0,01/13/1997,1995,1995,1995 Hepatitis B, Unspecified Formulation 1995, 1995,1995 HiB, Unspecified Formulation 01/13/1997, 1995,1995,1995 IPV 11/23/1999,199 6,1995,1995 MMR 11/23/1999,03/16/1996 Tdap 02/11/2025 Varicella 01/13/1997 Surgical History Surgery Date Site/Laterality [...] Last Done Comments Annual Wellness Exam 1998 COVID-19 Vaccine (2024- season) 2024 Influenza Vaccine (#1) 2024 DTaP/TDaP/Td (8 - Td or Tdap) 02/11/2035 02/11/2025, 12/21/2006, 11/23/1999, Additional history exists Hepatitis B Vaccine Completed 1995, 1995, 1995 Meningococcal B Vaccine Aged Out No l onger eligible based on patient's age to complete this topic Pneumococcal Vaccine 0-49 Aged Out No longer eligible based on patient's age to complete this topic
== END 2025-04-04 23:59 | disposition home or self-care (01) ==
LOC: LAB.DROPOF 04-06 09:05
PROVIDERS: Visit Provider Student in an Organized Health Care Education/Training Program
DX: B34.9 Viral infection, unspecified (principal); R09.89 Other specified symptoms and signs involving the circulatory and respiratory systems
CPT/HCPCS: 87631